=== PATIENT | male | born 1980 | race Native Hawaiian/Other Pacific Islander ===

== ENCOUNTER 2021-09-02 11:54 | Outpatient (CLI) | payer OTHER | END 2021-09-02 18:52 | disposition home or self-care (01) | LOC: RAD 11:54 → EDSTATUS 11:54 → RAD 18:52 | PROVIDERS: ATTEND Nurse Practitioner Family | DX: M25.522 Pain in left elbow (principal) ==

== ENCOUNTER 2021-09-03 03:33 | Emergency (ER) | payer OTHER ==
[~2021-09-03] VITALS: Ht 177.8 cm; Wt 96.2 kg
[2021-09-03 04:19] LABS: PLATELET COUNT 245 K/uL (142-355)
[2021-09-03 04:36] LABS: POTASSIUM 1.9 mmol/L (3.6-5.2)
[2021-09-03 04:45] LABS: PARTIAL THROMBOPLASTIN TIME 24.7 SECONDS (24.5-33.6)
[2021-09-03 06:30] VITALS: BP 127/73; TEMP 98.9
== END 2021-09-03 06:30 | disposition short-term general hospital (02) ==
LOC: ED 03:33
PROVIDERS: Hospitalist
DX: I21.4 Non-ST elevation (NSTEMI) myocardial infarction (principal); E87.6 Hypokalemia; E83.42 Hypomagnesemia; Z11.52 Encounter for screening for COVID-19; I10 Essential (primary) hypertension
CPT/HCPCS: 36415; 80053; 80320; 82550; 83735; 83880; 84484; 85027; 85610; 85730; 87635; 93005; 96360; 96365; 96366; 96375; 99284; J1644; U0003